=== PATIENT | female | born 1975 | race American Indian/Alaskan Native ===

== ENCOUNTER 2016-09-24 18:46 | Emergency (ER) | payer MEDICAID, OTHER ==
[2016-09-24 19:31] VITALS: BP 132/84
[2016-09-24] MEDS ORDERED: cefTRIAXone 500 MG, Lidocaine 1% 1 ML IM ONE ×2 (20:47)
--- NOTE | 2016-09-24 21:24 | EDM.PDOC ---
ED HPI GENERAL MEDICAL PROBLEM - General Chief Complaint: Genitourinary Problem Stated Complaint: STD CHECK Time Seen by Provider: 09/24/16 20:21 Source of Information: Reports: Patient History Limitations: Reports: No Limitations - History of Present Illness INITIAL COMMENTS - FREE TEXT/NARRATIVE: This patient is here for STD treatment or testing. Her male partner has a yellow urethral discharge that started yesterday. This patient has no symptoms however. - Related Data Allergies Allergy/AdvReac Type Severity Reaction Status Date / Time amoxicillin [From Augmentin] Allergy Hives Verified 02/05/16 13:33 clavulanic acid Allergy Hives Verified 02/05/16 13:33 [From Augmentin] Home Meds: Home Meds DULoxetine [Cymbalta] 1 tab PO DAILY 02/05/16 [History] Fluticasone Propionate [Flonase] 1 spray NASBOTH DAILY 02/05/16 [History] Insulin Aspart [Novolog Flexpen] 15 units SQ TIDMEALS 02/05/16 [History] Insulin Detemir [Levemir Flextouch] 20 units SQ BEDTIME 02/05/16 [History] Levothyroxine 125 mcg PO DAILY 02/05/16 [History] Pramipexole Di-HCl [Pramipexole Dihydrochloride] 2 tab PO BEDTIME 02/05/16 [ History] Aspirin [Aspir-Low] 09/24/16 [History] Gabapentin [Neurontin] 09/24/16 [History] Lisinopril [Lisinopril] 09/24/16 [History] Zolpidem [Ambien] 09/24/16 [History] atorvaSTATin [Lipitor] 09/24/16 [History] Past Medical History HEENT History: Reports: Allergic Rhinitis Cardiovascular History: Reports: High Cholesterol, Hypertension 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: Neurological History: Reports: Migraines, Other (See Below) Other Neuro History: restless leg syndrome Psychiatric History: Reports: Depression Endocrine/Metabolic History: Reports: Diabetes, Type II, Hyperthyroidism - Past Surgical History GI Surgical History: Reports: Cholecystectomy Female Surgical History: Reports: Section Musculoskeletal Surgical History: Reports: Other (See Below) Social & Family History - Tobacco Use Smoking Status *Q: Never Smoker Years of Tobacco use: 27 Packs/Tins Daily: 0.5 - Caffeine Use Caffeine Use: Reports: Coffee, Soda - Recreational Drug Use Recreational Drug Use: No ED ROS GENERAL - Review of Systems Review Of Systems: ROS reveals no pertinent complaints other than HPI. ED EXAM, RENAL/ - Physical Exam Exam: See Below Exam Limited By: No Limitations General Appearance: Alert, No Apparent Distress Respiratory/Chest: No Respiratory Distress (Female) Exam: Other (Pelvic exam was not done on this patient. Her partner did have a copious yellow urethral discharge consistent with GC.) Neurological: Alert Skin Exam: Warm Course - Vital Signs Last Recorded V/S: Last Vital Signs Temp 36.6 C 09/24/16 19:29 Pulse 76 09/24/16 19:29 Resp 14 09/24/16 19:29 BP 132/84 09/24/16 19:29 Pulse Ox 96 09/24/16 19:29 - Orders/Labs/Meds Meds: Medications Discontinued Medications Generic Name Dose Route Start Last Admin Trade Name Freq PRN Reason Stop Dose Admin Ceftriaxone Sodium 500 mg/ 0 mg 09/24/16 20:47 09/24/16 21:15 Lidocaine HCl 1 ml IM 09/24/16 20:48 1 inj ONETIME ONE Administration - Re-Assessments/Exams Free Text/Narrative Re-Assessment/Exam: 09/24/16 21:21 This patient received an injection of Rocephin 500 mg IM Departure - Departure Time of Disposition: 21:21 Disposition: Home, Self-Care 01 Condition: Fair Clinical Impression: Gonorrhea contact, treated - Discharge Information Forms: ED Department Discharge Additional Instructions: You received an injection of Rocephin, this is the antibiotic to treat a gonorrhea infection which I suspect you either have or could have been exposed to. Your partner received the same antibiotic. You will also need to take the antibiotic doxycycline 100 mg twice daily for 10 days. He will need to follow- up in your clinic in about 14 days for retesting. Your health care provider will decide if you need any other tests such as a Pap smear or any other STD testing.
== END 2016-09-24 21:42 | disposition home or self-care (01) ==
LOC: JP.ED 18:46
DX: Z20.2 Contact with and (suspected) exposure to infections with a predominantly sexual mode of transmission (principal); E78.00 Pure hypercholesterolemia, unspecified; I10 Essential (primary) hypertension; E11.9 Type 2 diabetes mellitus without complications; E03.9 Hypothyroidism, unspecified; Z90.49 Acquired absence of other specified parts of digestive tract; Z79.4 Long term (current) use of insulin; Z88.1 Allergy status to other antibiotic agents; Z88.8 Allergy status to other drugs, medicaments and biological substances
CPT/HCPCS: 96372; 99283; J0696

== ENCOUNTER 2019-09-08 13:29 | Emergency (ER) | payer MEDICAID ==
[2019-09-08 14:01] VITALS: BP 103/59; PULSE 75
--- NOTE | 2019-09-08 15:08 | EDM.PDOC ---
ED HPI GENERAL MEDICAL PROBLEM - General Chief Complaint: Upper Extremity Injury/Pain Stated Complaint: TWISTED LT HAND Time Seen by Provider: 09/08/19 14:15 Source of Information: Reports: Patient History Limitations: Reports: No Limitations - History of Present Illness INITIAL COMMENTS - FREE TEXT/NARRATIVE: 44-year-old female who has a persistent left wrist pain, especially at the base of the thumb, since grabbing onto her 11-month old grandchild as he was falling. It is just a persistent sensation of pain over the snuffbox area of the wrist. No significant swelling or bruising. She was in town today so came in to be checked along with her 17-year-old daughter who also has some wrist discomfort for the past week. Onset: Sudden Duration: Week(s): (2 weeks ago) Location: Reports: Upper Extremity, Left Associated Symptoms: Reports: No Other Symptoms Left Wrist Pain Score (Numeric/FACES): 4 - Related Data Allergies Allergy/AdvReac Type Severity Reaction Status Date / Time amoxicillin [From Augmentin] Allergy Hives Verified 09/08/19 14:05 clavulanic acid Allergy Hives Verified 09/08/19 14:05 [From Augmentin] Home Meds: Home Meds Insulin Aspart [Novolog Flexpen] 15 units SQ TIDMEALS 02/05/16 [History] Insulin Detemir [Levemir Flextouch] 20 units SQ BEDTIME 02/05/16 [History] Levothyroxine 125 mcg PO DAILY 02/05/16 [History] Pramipexole Di-HCl [Pramipexole Dihydrochloride] 2 tab PO BEDTIME 02/05/16 [ History] Gabapentin [Neurontin] 900 mg PO TID 09/24/16 [History] Fenofibrate Nanocrystallized [Fenofibrate] 48 mg PO BEDTIME 09/08/19 [History] Loratadine 10 mg PO DAILY 09/08/19 [History] Rosuvastatin Calcium 40 mg PO BEDTIME 09/08/19 [History] Past Medical History HEENT History: Reports: Allergic Rhinitis Cardiovascular History: Reports: High Cholesterol, Hypertension 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: Neurological History: Reports: Migraines, Other (See Below) Other Neuro History: restless leg syndrome Psychiatric History: Reports: Depression Endocrine/Metabolic History: Reports: Diabetes, Type II, Hyperthyroidism - Past Surgical History GI Surgical History: Reports: Cholecystectomy Female Surgical History: Reports: Section Musculoskeletal Surgical History: Reports: Other (See Below) Social & Family History - Tobacco Use Smoking Status *Q: Current Every Day Smoker Years of Tobacco use: 28 Packs/Tins Daily: 0.5 - Caffeine Use Caffeine Use: Reports: Coffee, Soda - Recreational Drug Use Recreational Drug Use: No Review of Systems - Review of Systems Review Of Systems: See Below Constitutional: Denies: Fever Respiratory: Denies: Shortness of Breath Cardiovascular: Denies: Chest Pain GI/Abdominal: Denies: Abdominal Pain Skin: Denies: Bruising Neurological: Denies: Paresthesia Psychiatric: Reports: No Symptoms ED EXAM, GENERAL - Physical Exam Exam: See Below Exam Limited By: No Limitations General Appearance: Alert, No Apparent Distress Head: Atraumatic Respiratory/Chest: No Respiratory Distress Extremities: Other (Exam of the left upper extremity revealed no shoulder or elbow tenderness and full range of motion. She does have some tenderness to palpation over the distal radius into the snuffbox area of the wrist and at the base of the left thumb. There is no bruising, swelling, deformity or other objective findings of injury.) Neurological: Alert, Oriented, No Motor/Sensory Deficits Course - Vital Signs Last Recorded V/S: Last Vital Signs Temp 98.0 F 09/08/19 14:03 Pulse 75 09/08/19 14:03 Resp 16 09/08/19 14:03 BP 103/59 L 09/08/19 14:03 Pulse Ox 98 09/08/19 14:03 - Orders/Labs/Meds Orders: Active Orders 24 hr Category Date Time Status Wrist Comp Min 3V Lt [CR] Stat Exams 09/08/19 14:22 Taken - Re-Assessments/Exams Free Text/Narrative Re-Assessment/Exam: 09/08/19 15:07 A left wrist x-ray was done which was negative. A cock-up splint was applied to the wrist that she will wear through the next couple of days, then try to increase activity as tolerated and recheck with orthopedics if not improving. Departure - Departure Time of Disposition: 15:16 Disposition: Home, Self-Care 01 Clinical Impression: Sprain of left wrist Qualifiers: Encounter type: initial encounter Qualified Code(s): S63.502A - Unspecified sprain of left wrist, initial encounter - Discharge Information Instructions: Wrist Sprain, Adult Referrals: Destinee Fox I TEMPERER [Primary Care Provider] - Forms: ED Department Discharge Care Plan Goals: Wear wrist splint and use of regular dose of anti-inflammatory for the next 2 to 3 days then increase activity as tolerated. Consider rechecking next week if not improving satisfactorily. Sepsis Event Note - Evaluation Sepsis Screening Result: No Definite Risk - Focused Exam Vital Signs: Vital Signs Temp Pulse Resp BP Pulse Ox 09/08/19 14:03 98.0 F 75 16 103/59 L 98 09/08/19 14:00 98.0 F 75 16 103/59 L 98 Date Exam was Performed: 09/08/19 Time Exam was Performed: 18:19 - My Orders Last 24 Hours: My Active Orders 09/08/19 14:22 Wrist Comp Min 3V Lt [CR] Stat - Assessment/Plan Last 24 Hours: My Active Orders 09/08/19 14:22 Wrist Comp Min 3V Lt [CR] Stat
--- NOTE | 2019-09-10 09:24 | CR ---
Wrist Comp Min 3V Lt CLINICAL HISTORY: Injury FINDINGS: There is no acute fracture or dislocation within the left wrist. There is some minimal spurring off the scaphoid and trapezium. There is mild laxity in the first carpometacarpal joint. This is likely chronic Impression: No fracture or dislocation
== END 2019-09-08 15:23 | disposition home or self-care (01) ==
LOC: JP.ED 13:29
DX: S63.502A Unspecified sprain of left wrist, initial encounter (principal); I10 Essential (primary) hypertension; E11.9 Type 2 diabetes mellitus without complications; E78.00 Pure hypercholesterolemia, unspecified; E05.90 Thyrotoxicosis, unspecified without thyrotoxic crisis or storm; F17.210 Nicotine dependence, cigarettes, uncomplicated; Z88.1 Allergy status to other antibiotic agents; Z79.899 Other long term (current) drug therapy; Z79.4 Long term (current) use of insulin; W19.XXXA Unspecified fall, initial encounter
CPT/HCPCS: 73110-26-LT; 73110-LT; 99282; 99283-25